=== PATIENT | female | born 1975 | race African-American/Black ===

== ENCOUNTER 2016-10-25 14:37 | Inpatient (IN) | payer OTHER ==
[~2016-10-25] VITALS: Ht 162.6 cm; Wt 135.5 kg
[~2016-10-25 14:37] MED LIST: BACTRIM DS TAB1 EACH PO; CIPROFLOXACIN500 M1 PO; FLEXERIL PO; MEDROL DOSPAK21 TAB PO; NORCO 5-325 TA1 EACH PO
[2016-10-25 15:03] VITALS: BP 148/99
[2016-10-25 15:28] LABS: HEMOGLOBIN 12.1 gm/dL (12.0-15.0)
[2016-10-25 15:30] LABS: ABSOLUTE NEUTROPHILS 8.6 thou/uL (1.4-8.2); BASOPHILS 0.8 % (0.0-2.0); EOSINOPHILS 0.1 % (0.0-3.0); HEMATOCRIT 36.2 % (37.0-47.0); LYMPHOCYTES 14.4 % (24.0-44.0); MCH 26.8 pg (26.0-34.0); MCHC 33.4 g/dL (28.0-37.0); MCV 80.3 fL (80.0-100.0); MONOCYTES 9.6 % (1.0-8.0); PLATELET COUNT 192 thou/uL (150-400); POLYS 75.1 % (36.0-66.0); RBC 4.51 mil/uL (4.20-5.00); RDW 14.5 % (10.5-14.5); WBC 11.5 thou/uL (4.0-11.0)
[2016-10-25 15:31] LABS: MANUAL DIFF NO
[2016-10-25] MEDS ORDERED: PHENERGAN 25 MG25 M1 PO (15:37)
[2016-10-25] MEDS ORDERED: TESSALON PERLE100 MG PO (15:37)
[2016-10-25 15:38] LABS: URINE BILIRUBIN NEGATIVE (Negative); URINE BLOOD 3+ (Negative); URINE COLOR YELLOW; URINE GLUCOSE-RANDOM* NEGATIVE (Negative); URINE KETONES 2+ (Negative); URINE PROTEIN (DIPSTICK) 2+ (Negative); URINE SPECIFIC GRAVITY 1.025 (1.003-1.035)
[2016-10-25 15:40] LABS: URINE LEUKOCYTES-REFLEX 1+ (Negative)
[2016-10-25 15:43] LABS: CALCIUM 8.5 mg/dL (8.5-10.1); CREATININE 1.4 mg/dL (0.6-1.0); TOTAL BILIRUBIN 0.9 mg/dL (<0.1-1.0); TOTAL PROTEIN 7.9 g/dL (6.4-8.2)
[2016-10-25 15:47] LABS: POTASSIUM 2.8 mmol/L (3.5-5.1)
[2016-10-25 15:57] LABS: CASTS None Seen /LPF (None Seen); SQUAMOUS 0-3 Few /LPF (0-3)
[2016-10-25 15:58] LABS: CRYSTALS None Seen /LPF (None Seen); URINE WBC-REFLEX >25 Many /HPF (0-5)
[2016-10-25] MEDS ORDERED: PROMACTA12.5 MG PO (16:10)
[2016-10-25 18:22] VITALS: BP 136/83
[2016-10-25 18:40] VITALS: BP 136/83
[2016-10-25 19:30] VITALS: BP 125/66
[2016-10-26 05:19] LABS: HEMATOCRIT 33.6 % (37.0-47.0); HEMOGLOBIN 11.2 gm/dL (12.0-15.0); MCH 26.9 pg (26.0-34.0); MCHC 33.4 g/dL (28.0-37.0); MCV 80.7 fL (80.0-100.0); RBC 4.16 mil/uL (4.20-5.00); RDW 14.7 % (10.5-14.5); WBC 9.7 thou/uL (4.0-11.0)
[2016-10-26 05:48] LABS: ALBUMIN 2.6 g/dL (3.4-5.0); CALCIUM 7.9 mg/dL (8.5-10.1); CREATININE 0.9 mg/dL (0.6-1.0); POTASSIUM 3.3 mmol/L (3.5-5.1); TOTAL BILIRUBIN 0.6 mg/dL (<0.1-1.0); TOTAL PROTEIN 7.2 g/dL (6.4-8.2)
[2016-10-26 06:15] VITALS: BP 126/81
[2016-10-26 08:43] VITALS: BP 116/66
[2016-10-26] MEDS ORDERED: ACCUNEB SO1.25 MG/1 INH (08:43)
[2016-10-26 19:46] VITALS: BP 153/96
[2016-10-27 04:15] VITALS: BP 134/90
[2016-10-27 06:19] LABS: HEMATOCRIT 32.7 % (37.0-47.0); MCH 27.1 pg (26.0-34.0); MCHC 33.8 g/dL (28.0-37.0); MCV 80.1 fL (80.0-100.0); RBC 4.08 mil/uL (4.20-5.00); RDW 15.1 % (10.5-14.5); WBC 6.2 thou/uL (4.0-11.0)
[2016-10-27 06:34] LABS: CALCIUM 8.4 mg/dL (8.5-10.1); CREATININE 0.8 mg/dL (0.6-1.0)
[2016-10-27 08:00] VITALS: BP 155/95
[2016-10-27] MEDS ORDERED: LEVAQUIN 500 M500 M2 PO (10:42)
[2016-10-27 11:25] VITALS: BP 155/95
== END 2016-10-27 14:01 | disposition home or self-care (01) | DRG 872 ==
LOC: ER 14:37 → EROBS 16:53 → 4S 16:53 → ER 18:59 → 4S 19:07 → ENTRNSPT 10-27 14:02 → EDTRNSPTSTS 10-27 14:06
PROVIDERS: Family Medicine; Physician Assistant
DX: A41.9 Sepsis, unspecified organism (principal); N10 Acute pyelonephritis; E44.1 Mild protein-calorie malnutrition; E87.1 Hypo-osmolality and hyponatremia; D69.3 Immune thrombocytopenic purpura; Z68.43 Body mass index [BMI] 50.0-59.9, adult; B96.20 Unspecified Escherichia coli [E. coli] as the cause of diseases classified elsewhere; E86.0 Dehydration; E87.6 Hypokalemia; Z79.899 Other long term (current) drug therapy; Z88.1 Allergy status to other antibiotic agents; Z88.2 Allergy status to sulfonamides
CPT/HCPCS: 10100